=== PATIENT | female | born 1985 | race Caucasian/White ===

== ENCOUNTER 2016-10-11 06:49 | Emergency (ER) | payer OTHER ==
[~2016-10-11] VITALS: Ht 147.3 cm; Wt 90.5 kg
[2016-10-11 06:50] VITALS: BP 120/82; PULSE 90; RESP 16; TEMP 98.7; O2SAT 99
--- NOTE | 2016-10-11 07:05 | PD ---
HPI Chief Complaint: Respiratory Symptoms Time Seen by Provider: 07:02 Travel History International Travel<30 days: No Contact w/Intl Traveler<30days: No Traveled to known affect area: No History of Present Illness HPI patient c/o wheezing, prod cough of white sputum, onset at 0600 today, ran out of her home albuterol...uses advair, ventolin and another inhaler that she uses also...currently denies fever, no cp. all: nkda pmh: dm and asthma pshx: gb PFSH Past Medical History Diabetes: Yes Respiratory: Yes (asthma) ?: Not LMP: 10/11/16 Social History Tobacco Use: No Allergies-Medications (Allergen,Severity, Reaction): Coded Allergies: No Known Allergies (Unverified , 10/11/16) Reported Meds & Prescriptions Reported Meds & Active Scripts Active Albuterol Neb (Albuterol Sulfate) 2.5 Mg/3 Ml Neb 2.5 Mg NEB Q4HR NEB PRN Medrol Dosepak (Methylprednisolone) 4 Mg Dspk 4 Mg PO DIRECTED Per Pharmacist direction Proventil Hfa 6.7 GM Inh (Albuterol Sulfate) 90 Mcg/Act Aer 1 Puff INH Q4H PRN Reported Abilify (Aripiprazole) 20 Mg Tab 20 Mg PO DAILY Wellbutrin SR 12 HR (Bupropion HCl) 150 Mg Tab 150 Mg PO DAILY Klonopin (Clonazepam) 1 Mg Tab 1 Mg PO DAILY Metformin (Metformin HCl) 1,000 Mg Tab 1,000 Mg PO BIDPC With meals Spiriva Handihaler (Tiotropium Inh) 18 Mcg Cap 18 Mcg INH DAILY 1 capsule = 18 mcg Symbicort Inh (Budesonide/Formoterol Fumarate) 80-4.5 Mcg/Act Aero 1 Puff INH DAILY Symbicort Inh (Budesonide/Formoterol Fumarate) 160-4.5 Mcg/Act Aero 2 Puff INH Q12HR Albuterol Neb (Albuterol Sulfate) 0.63 Mg/3 Ml Neb 0.63 Mg NEB Q6HR NEB PRN Ventolin Hfa 18 GM Inh (Albuterol Sulfate) 90 Mcg/Act Aer 2 Puff INH Q4-6H PRN Review of Systems Except as stated in HPI: all other systems reviewed are Neg Respiratory: Positive: Cough, Wheezing Physical Exam Narrative GENERAL: SKIN: Warm and dry. HEAD: Atraumatic. Normocephalic. EYES: Pupils equal and round. No scleral icterus. No injection or drainage. ENT: No nasal bleeding or discharge. Mucous membranes pink and moist. NECK: Trachea midline. No JVD. CARDIOVASCULAR: Regular rate and rhythm. RESPIRATORY: No accessory muscle use. good tv, mild scattered wheezing GASTROINTESTINAL: Abdomen soft, non-tender, nondistended. Hepatic and splenic margins not palpable. MUSCULOSKELETAL: Extremities without clubbing, cyanosis, or edema. No obvious deformities. NEUROLOGICAL: Awake and alert. No obvious cranial nerve deficits. Motor grossly within normal limits. Five out of 5 muscle strength in the arms and legs. Normal speech. PSYCHIATRIC: Appropriate mood and affect; insight and judgment normal. Data Data Last Documented VS Vital Signs Date Time Temp Pulse Resp B/P Pulse Ox O2 Delivery O2 Flow Rate FiO2 10/11/16 08:40 75 21 112/69 100 10/11/16 07:35 Aerosol Mask 2 10/11/16 06:50 98.7 Orders Chest, Single Ap (10/11/16 07:05) Albuterol-Ipratropium Neb (Duoneb Neb) (10/11/16 07:15) Dexamethasone Inj (Decadron Inj) (10/11/16 07:15) MDM Medical Decision Making Medical Screen Exam Complete: Yes Emergency Medical Condition: Yes Medical Record Reviewed: Yes Differential Diagnosis URI V ASTHMA V PNA Narrative Course xray neg for pna, no hypoxemia and mild exacerbation without e/o resp distress...will d/c Diagnosis Primary Impression: acute asthma exacerbation Scripts Albuterol Neb 2.5 Mg/3 Ml Neb2.5 Mg NEB Q4HR NEB PRN (SHORTNESS OF BREATH) #60 NEBULE Ref 0 Prov:Anuel Lepe MD 10/11/16 Methylprednisolone Dosepak (Medrol Dosepak)4 Mg Dspk4 Mg PO DIRECTED #1 DSPK Per Pharmacist direction Prov:Anuel Lepe MD 10/11/16 Albuterol 6.7 GM Inh (Proventil Hfa 6.7 GM Inh)90 Mcg/Act Aer1 Puff INH Q4H PRN (SHORTNESS OF BREATH) #1 INHALER Prov:Anuel Lepe MD 10/11/16 Disposition: 01 DISCHARGE HOME Condition: Stable Anuel Lepe MD Oct 11, 2016 07:05
[2016-10-11 07:10] VITALS: PULSE 75; RESP 25; O2SAT 97
[2016-10-11] MEDS ORDERED: VENTAER INH (07:10)
[2016-10-11] MEDS ORDERED: SPIRCAP INH (07:10)
[2016-10-11] MEDS ORDERED: SYMB80AE INH (07:10)
[2016-10-11] MEDS ORDERED: ALBU0.63 NEB (07:10)
[2016-10-11] MEDS ORDERED: SYMB160A INH (07:10)
[2016-10-11 07:15] VITALS: O2SAT 99
[2016-10-11] MEDS ORDERED: DEXAMETHASONE SOD PHOS 4 MG/ML VIAL IM ONE (07:15)
[2016-10-11] MEDS ORDERED: ARIP1TAB7 PO (07:16)
[2016-10-11] MEDS ORDERED: CLON1 PO (07:16)
[2016-10-11] MEDS ORDERED: BUPR150CR PO (07:16)
[2016-10-11] MEDS ORDERED: METF1000 PO (07:16)
[2016-10-11 07:23] VITALS: O2SAT 99
[2016-10-11] MEDS: RESP: ALBUTEROL 2.5 MG/IPRATROPIUM 0.5 MG NEB (SCH) INH ×2 (07:23→07:24)
--- NOTE | 2016-10-11 07:46 | RADRPT ---
EXAM DATE/TIME: 10/11/2016 07:31 [facility] COMPARISON: No previous studies available for comparison. INDICATIONS : Chest pain, shortness of breath, and chest tightness. MEDICAL HISTORY : Asthma. SURGICAL HISTORY : None. ENCOUNTER: Initial ACUITY: 1 day PAIN SCORE: 2/10 LOCATION: Bilateral chest FINDINGS: Portable AP view of the chest demonstrates a normal-sized cardiac silhouette. No effusion, consolidat ion, or pneumothorax is visualized. The bones and soft tissues demonstrate no acute abnormality. Ther e is mild atelectasis at the left base. CONCLUSION: No acute cardiopulmonary abnormality is identified. Bob Centeno MD on October 11, 2016 at 7:44 Board Certified Radiologist. This report was verified electronically.
[2016-10-11] MEDS ORDERED: ALBU6.7H INH (07:49)
[2016-10-11] MEDS ORDERED: MEDR4PAK PO (07:49)
[2016-10-11] MEDS ORDERED: ALBU0.08 NEB (07:50)
[2016-10-11 08:40] VITALS: BP 112/69
== END 2016-10-11 08:43 | disposition home or self-care (01) ==
LOC: NEPE 06:49
DX: J45.901 Unspecified asthma with (acute) exacerbation (principal); E11.9 Type 2 diabetes mellitus without complications; Z79.84 Long term (current) use of oral hypoglycemic drugs
CPT/HCPCS: 71010; 94640; 94664; 96372; 99284; J1100